=== PATIENT | female | born 1995 | race Hispanic/Latino ===

== ENCOUNTER 2019-06-16 14:39 | Emergency (ER) | payer OTHER, SELFPAY ==
[2019-06-16 14:43] VITALS: BMI 25.9
[2019-06-16 14:58] VITALS: TEMP 36.7
[2019-06-16 15:06] LABS: Bacteria Urine None Seen; RBC Urine None Seen (0-5/HPF); WBC Urine None Seen (0-5/HPF)
--- NOTE | 2019-06-16 15:11 | DI.US.S_ITS ---
PROCEDURE: US PELVIC COMPLETE INDICATIONS: BILAT PELVIC PAIN, HX OF ENDOMETRIOSIS TECHNIQUE: Real-time scanning was performed of the pelvic organs, with image documentation. Additional endovaginal scanning was necessary due to incomplete visualization of the adnexal and endometrial structures by transabdominal scanning. COMPARISON: None. FINDINGS: Transabdominal scanning: A mild amount of free pelvic fluid is seen, which is considered to be within physiologic limits. Limited scanning through the kidneys shows no hydronephrosis. Endovaginal scanning: Uterus: Uterus is normal in size at 6.3 x 2.5 x 3.7 cm. The endometrium measures 4 mm in combined thickness. Ovaries: The right ovary measures 3.7 x 1.7 x 1.8 cm. The left ovary measures 3.8 x 1.9 x 1.8 cm. The ovaries have a normal sonographic appearance, with note made of a 1.7 cm simple appearing cystic follicle within the right ovary, which is considered to be within physiologic limits. No adnexal masses are seen. The technologist notes that the patient was tender when scanning over the right ovary. Normal appearing color Doppler flow can be seen within the right ovary. However, no waveform was obtained. IMPRESSION: No significant pelvic ultrasound abnormality is seen. The technologist notes patient tenderness while scanning over the right ovary. Dictated by: Jovanni Allen M.D. on 06/16/2019 at 15:30 Approved by: Jovanni Allen M.D. on 06/16/2019 at 15:33
[2019-06-16] MEDS: ACETAMINOPHEN 325 MG TABLET 975 MG PO (15:26)
[2019-06-16 15:35] LABS: Urine Comments Microscopic Normal
[2019-06-16 15:37] LABS: Culture Indicated Urine Specimen Cultured
[2019-06-16 15:54] LABS: Add Manual Diff / Slide Review NO; Basophils Absolute Auto 100 /uL (0-100); Basophils Percent Auto 0.8 % (0-2); Eosinophils Absolute Auto 0 /uL (0-450); Eosinophils Percent Auto 0.5 % (2-4); Hematocrit 39.8 % (36-46); Hemoglobin 13.4 g/dL (12.0-16.0); Lymphocytes Absolute Auto 2500 /uL (1100-4500); Lymphocytes Percent Auto 29.7 % (25-40); Mean Corpuscular HGB Conc 33.8 % (30-36); Mean Corpuscular Hemoglobin 32.5 PG (26-34); Mean Corpuscular Volume 96.2 fL (80-100); Monocytes Absolute Auto 600 /uL (0-900); Monocytes Percent Auto 7.1 % (3-14); Neutrophils Absolute Auto 5100 /uL (1500-7000); Neutrophils Percent Auto 61.9 % (50-75); Platelet Count 241 X10^3/uL (150-400); Red Blood Cell Count 4.13 X10^6/uL (4.0-5.2); Red Cell Distribution Width 12.9 % (11.6-14.8); White Blood Cell Count 8.3 X10^3/uL (4.5-11.0)
[2019-06-16 16:04] LABS: Blood Urea Nitrogen 11 mg/dL (7-17); Calcium 9.4 mg/dL (8.4-10.2); Carbon Dioxide 26 mmol/L (22-32); Chloride 103 mmol/L (98-107); Estimated Glomerular Filt Rate > 60.0 mL/min (>60); Glucose 87 mg/dL (70-100); HEMOLYSIS < 15 (0-50); Potassium 3.9 mmol/L (3.4-5.1); Sodium 140 mmol/L (137-145)
--- NOTE | 2019-06-16 16:54 | ED_ITS ---
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 She reports has a history of endometriosis and she is current taking oral find contraception for this. She reports was diagnosed with endometriosis 4 months ago and has been having daily pain at about 5/10. She reports she had similar endometriosis but was unable to be seen by her filter plant operator provider at [facility]. She somehow felt some tingling and numbness to her arms and request an ambulance. Her last LMP was 06/09/19 for 3 days which is shorter than her normal duration of menses. She denies history of STIs and she is sexually active. She denies fever chills/vomiting, urinary symptoms. She was prescribed with Mobic but the medication is not helping with the pain. She is open to see by filter plant operator specialist for her endometriosis treatment. She reports had ultrasound done in 05/05/2019 in [facility] but the record is not available at this time. Related Data Home Medications Medication Instructions Recorded Confirmed levonorgestrel-ethinyl estrad 1 tab PO DAILY 06/16/19 06/16/19 [Orsythia] meloxicam 15 mg PO DAILY 06/16/19 06/16/19 Allergies Allergy/AdvReac Type Severity Reaction Status Date / Time No Known Drug Allergies Allergy Verified 06/16/19 14:59 Review of Systems <MARIA ALEJANDRA Pro - Last Filed: 06/17/19 03:16> Review of Systems General: See HPI HEENT: Denies sinus pain, ear pain, sore throat, difficulty swallowing, dizziness. Respiratory: Denies dyspnea, cough, wheezing, hemoptysis, sputum. Cardiovascular: Denies chest pain, palpitations, orthopnea, edema. Gastrointestinal: See HPI : Denies dysuria, frequency, incontinence, hematuria, urinary retention. Musculoskeletal: Denies weakness, joint pain or bony pain. Skin: Denies rash, skin lesions, or other. Neurologic: Denies weakness, headache, numbness, change in speech, confusion, seizures, incoordination. Psychiatric: No concerning psychosocial issues. 12-point review of systems is negative except for those stated above. PFSH <MARIA ALEJANDRA Pro - Last Filed: 06/17/19 03:16> Medical History Endometriosis (Acute) Shoulder pain (Acute) Surgical History (Updated 06/17/19 @ 03:00 by MARIA ALEJANDRA Pro) No pertinent past surgical history (Acute) Social History Smoking Status: Never smoker Social History Smoking Status: Never smoker Exam <MARIA ALEJANDRA Pro - Last Filed: 06/17/19 03:16> Narrative Exam Narrative: GEN: Alert, oriented x 3, well appearing and nourished, and in no acute distress. Head: Normal cephalic, atraumatic. No scalp or temporal tenderness, palpable mass or rash. EYES: Pupils are equal, round, and reactive to light and accommodation. Extraocular muscles are intact bilaterally. There is no subconjunctival hemorrhage, exudate and sclera non-icteric. ENT: Bilateral auditory canals and tympanic membranes. Hearing grossly intact. Mucous membrane moist, no mucosal lesion. Throat without erythema, tonsillar hypertrophy or exudate. Uvula in midline, airway patent. Neck: Trachea in midline. No JVD, non-tender without lymphadenopathy. No masses or thyroid megaly. Supple, non-tender and no meningeal signs. CARDIAC: Normal regular rate and rhythm without murmurs, gallops, or rubs. No chest wall tenderness. No peripheral edema, cyanosis or pallor. Capillary refill is less than 2 seconds. RESPIRATORY: Lungs are cleat to auscultate bilaterally. No cough, wheezes, rales, or rhonchi. No stridor, respiratory distress, increase work of breathing, or accessary muscle used. ABD: Tender to palpate in bilateral low abdomen. Abdomen soft and non- distended. No guarding or rebound tenderness to palpate. Bowel sounds are normal in all 4 quadrants. There is no palpable masses or organomegaly. PELVIC: Normally developed external female genitalia with no external lesions or eruptions. Vagina and cervix have no lesions, inflammation, discharge or tenderness. Cervix is nontender. Uterus is within normal limits with no adnexal fullness. EXT: Full painless ROM of all extremities with no loss of sensation, strength, effusion or edema. SKIN: Warm, dry, normal color for patient. No erythema, lesions or rash. BACK: Nontender without deformity or crepitance. No flank tenderness. NEUROLOGICAL: Alert and oriented to place, time and person. Sensation and motor function intact bilaterally. No facial droops, dysphasia. PSYCHIATRIC: Good judgement and reason, without hallucinations, abnormal affect or abnormal behaviors during the examination. Patient is not suicidal. Initial Vital Signs Initial Vital Signs: Vital Signs Temperature 98.0 F 06/16/19 14:58 <Ricky Manzo DO - Last Filed: 06/18/19 06:39> Initial Vital Signs Initial Vital Signs: Vital Signs Temperature 98.0 F 06/16/19 14:58 Course <MARIA ALEJANDRA Pro - Last Filed: 06/17/19 03:16> Orders Ordered: Discontinued Medications Acetaminophen (Tylenol) 975 mg PO NOW ONE Stop: 06/16/19 15:14 Last Admin: 06/16/19 15:26 Dose: 975 mg Ketorolac Tromethamine (Toradol) 30 mg IV NOW ONE Stop: 06/16/19 15:15 Last Admin: 06/16/19 16:04 Dose: Not Given Ketorolac Tromethamine (Toradol) 60 mg IM NOW ONE Stop: 06/16/19 17:38 Last Admin: 06/16/19 17:42 Dose: 60 mg Vital Signs - 8 hr 06/16/19 14:58 Temperature 98.0 F <DO Ara Obrien Last Filed: 06/18/19 06:39> Orders Ordered: Discontinued Medications Acetaminophen (Tylenol) 975 mg PO NOW ONE Stop: 06/16/19 15:14 Last Admin: 06/16/19 15:26 Dose: 975 mg Ketorolac Tromethamine (Toradol) 30 mg IV NOW ONE Stop: 06/16/19 15:15 Last Admin: 06/16/19 16:04 Dose: Not Given Ketorolac Tromethamine (Toradol) 60 mg IM NOW ONE Stop: 06/16/19 17:38 Last Admin: 06/16/19 17:42 Dose: 60 mg Vital Signs - 8 hr 06/16/19 14:58 Temperature 98.0 F MDM - Female Genitourinary <Darvin MARIA ALEJANDRA Singh - Last Filed: 06/17/19 03:16> Differential Diagnosis Likely urinary tract infection, cervicitis, vaginitis and other (exacerbation of endometriosis, ovarian torsion) Medical Records Attestation: I reviewed the patient's medical records. Lab Data Attestation: I reviewed the patient's lab results. Result diagrams: 06/16/19 15:45 06/16/19 15:45 Lab Results 06/16/19 06/16/19 06/16/19 Range/Units 14:45 15:45 15:45 WBC 8.3 (4.5-11.0) X10^3/uL RBC 4.13 (4.0-5.2) X10^6/uL Hgb 13.4 (12.0-16.0) g/dL Hct 39.8 (36-46) % MCV 96.2 (80-100) fL MCH 32.5 (26-34) PG MCHC 33.8 (30-36) % RDW 12.9 (11.6-14.8) % Plt Count 241 (150-400) X10^3/uL Neut % (Auto) 61.9 (50-75) % Lymph % (Auto) 29.7 (25-40) % [place] % (Auto) 7.1 (3-14) % Eos % (Auto) 0.5 L (2-4) % Baso % (Auto) 0.8 (0-2) % Neut # (Auto) 5100 (3739-1007) /uL Lymph # (Auto) 2500 (0615-5715) /uL [place] # (Auto) 600 (0-900) /uL Eos # (Auto) 0 (0-450) /uL Baso # (Auto) 100 (0-100) /uL Sodium 140 (137-145) mmol/L Potassium 3.9 (3.4-5.1) mmol/L Chloride 103 (98-107) mmol/L Carbon Dioxide 26 (22-32) mmol/L BUN 11 (7-17) mg/dL Creatinine 0.50 L (0.52-1.04) mg/dL Estimated GFR > 60.0 (>60) mL/min BUN/Creatinine Ratio 22.0 (6-22) Glucose 87 (70-100) mg/dL Calcium 9.4 (8.4-10.2) mg/dL Urine RBC None seen (0-5/HPF) Urine WBC None seen (0-5/HPF) Urine Bacteria None seen (None) Ur Culture Indicated? Specimen cultured Micro UA Comment Microscopic normal Point of Care Testing Test Results Negative Urine Dip Bedside Urine Glucose Negative Bedside Urine Bilirubin - Negative Bedside Urine Ketone - Negative Urine Specific [place] 1.010 Bedside Urine Occult Blood - Negative Bedside Urine pH 7 Bedside Urine Protein - Negative Bedside Urine Urobilinogen - Negative Bedside Urine Nitrite - Negative Bedside Urine Leukocytes +/- 15 Esterase Imaging Data US-Pelvic: Radiologist's impression: Ofe Carreno 23 [address] 1995 [place] [address] Ultrasound Report Signed Patient: Ofe CarrenoMR#: [id number] : 1995Acct:[id number] Age/Sex: 23 FDate of Service: 06/16/19 Loc: ED Accession Number: [id number] Procedure: US pelvic complete Ordering Provider: Darvin Singh PROCEDURE: US PELVIC COMPLETE INDICATIONS: BILAT PELVIC PAIN, HX OF ENDOMETRIOSIS TECHNIQUE: Real-time scanning was performed of the pelvic organs, with image documentation. Additional endovaginal scanning was necessary due to incomplete visualization of the adnexal and endometrial structures by transabdominal scanning. COMPARISON: None. FINDINGS: Transabdominal scanning: A mild amount of free pelvic fluid is seen, which is considered to be within physiologic limits. Limited scanning through the kidneys shows no hydronephrosis. Endovaginal scanning: Uterus: Uterus is normal in size at 6.3 x 2.5 x 3.7 cm. The endometrium measures 4 mm in combined thickness. Ovaries: The right ovary measures 3.7 x 1.7 x 1.8 cm. The left ovary measures 3.8 x 1.9 x 1.8 cm. The ovaries have a normal sonographic appearance, with note made of a 1.7 cm simple appearing cystic follicle within the right ovary, which is considered to be within physiologic limits. No adnexal masses are seen. The technologist notes that the patient was tender when scanning over the right ovary. Normal appearing color Doppler flow can be seen within the right ovary. However, no waveform was obtained. IMPRESSION: No significant pelvic ultrasound abnormality is seen. The technologist notes patient tenderness while scanning over the right ovary. Dictated by: Jovanni Allen M.D. on 06/16/2019 at 15:30 Approved by: Jovanni Allen M.D. on 06/16/2019 at 15:33 MDM Narrative Medical decision making narrative: This is a 23-year-old female presents to ED with bilateral lower abdominal pain with intermittent mild nausea. She reports was diagnosed with endometriosis 4 months ago his current he taking oral contraceptive. She reports lives with daily pain about 5/10. Today she had similar pain but more severe as 7/10 and sharp with pressure and requested an ambulance service. Her lab tests today looks unremarkable. The urine appears to be clean without signs of infection. The urine was negative. GC- chlamydia culture were obtained during pelvic exam which is pending. There was no cervical motion tenderness, no unusual vaginal discharge noted. Patient reports discomfort with deep palpation on bilateral lower abdomen. Pelvic ultrasound shows no significant abnormal to was seen. Patient was medicated with p.o. Tylenol 975 mg and Toradol 60 mg IM injection prior living ER. We discussed in length the patient is to be follow up with her primary care physic lawrence and to get a referral to filter plant operator provider. The tests that were done today did not indicate any acute findings or surgical evaluations at this. Patient verbalized understanding and discussed return precautions. Patient agrees with the treatment plan and all questions were answered. <Ricky Manzo, DO - Last Filed: 06/18/19 06:39> Lab Data Lab Results 06/16/19 06/16/19 06/16/19 Range/Units 14:45 15:45 15:45 WBC 8.3 (4.5-11.0) X10^3/uL RBC 4.13 (4.0-5.2) X10^6/uL Hgb 13.4 (12.0-16.0) g/dL Hct 39.8 (36-46) % MCV 96.2 (80-100) fL MCH 32.5 (26-34) PG MCHC 33.8 (30-36) % RDW 12.9 (11.6-14.8) % Plt Count 241 (150-400) X10^3/uL Neut % (Auto) 61.9 (50-75) % Lymph % (Auto) 29.7 (25-40) % [place] % (Auto) 7.1 (3-14) % Eos % (Auto) 0.5 L (2-4) % Baso % (Auto) 0.8 (0-2) % Neut # (Auto) 5100 (3539-9498) /uL Lymph # (Auto) 2500 (5718-6940) /uL [place] # (Auto) 600 (0-900) /uL Eos # (Auto) 0 (0-450) /uL Baso # (Auto) 100 (0-100) /uL Sodium 140 (137-145) mmol/L Potassium 3.9 (3.4-5.1) mmol/L Chloride 103 (98-107) mmol/L Carbon Dioxide 26 (22-32) mmol/L BUN 11 (7-17) mg/dL Creatinine 0.50 L (0.52-1.04) mg/dL Estimated GFR > 60.0 (>60) mL/min BUN/Creatinine Ratio 22.0 (6-22) Glucose 87 (70-100) mg/dL Calcium 9.4 (8.4-10.2) mg/dL Urine RBC None seen (0-5/HPF) Urine WBC None seen (0-5/HPF) Urine Bacteria None seen (None) Ur Culture Indicated? Specimen cultured Micro UA Comment Microscopic normal Point of Care Testing Test Results Negative Urine Dip Bedside Urine Glucose Negative Bedside Urine Bilirubin - Negative Bedside Urine Ketone - Negative Urine Specific [place] 1.010 Bedside Urine Occult Blood - Negative Bedside Urine pH 7 Bedside Urine Protein - Negative Bedside Urine Urobilinogen - Negative Bedside Urine Nitrite - Negative Bedside Urine Leukocytes +/- 15 Esterase Discharge Plan Departure Patient Disposition: Home Clinical Impression: Bilateral lower abdominal pain, History of endometriosis Discharge Date/Time: 06/16/19 18:09 Interventions: ED Discharge Assessment Last Done: 06/16/19 18:08 Instructions: DI for Endometriosis, DI for Abdominal Pain-Adult Activity Restrictions/Additional Instructions: You have been diagnosed with [bilateral low abdominal pain, history of endometriosis. Your ultrasound test result shows no ovarian rupture, mass, torsion. You're a urine test shows no obvious infection but it is being cultured at this time and you will receive a phone call if you need to be treated with antibiotic medication. Also CG-GC culture was obtained and the result is pending. He probably need a referral to filter plant operator specialist for the endometriosis. Your blood test results are unremarkable. You were treated with p.o. Tylenol and Im Toradol]. What to do: *Take your medications as directed. He can add Tylenol to you're meloxicam medications for pain. Do not take additional ibuprofen, Aleve or and states severe taking meloxicam. *Follow up with your primary care provider in 2-3 days, call for an appointment. Let them know you were seen in the ED and that we asked you to be seen in follow up. *Return to ED if you have any new, worsening, or concerning symptoms, such as [increasing abdominal pain, fever, nausea vomiting, unusual vaginal bleeding/discharge, flank pain, chest pain, breathing difficulty, any acute concerns]. Prescriptions: No Action levonorgestrel-ethinyl estrad [Orsythia] 0.1-20 mg-mcg tablet 1 tab PO DAILY RF: 0 meloxicam 15 mg tablet 15 mg PO DAILY RF: 0 Referrals: [facility] [Outside] <Ricky Manzo DO - Last Filed: 06/18/19 06:39> Cosign ED Attending Luz Attestation: I was immediately available in the department for consultation. Documentation has been reviewed. I agree with assessment and plan.
[2019-06-16] MEDS: KETOROLAC 60 MG/2 ML VIAL IM (17:42)
[2019-06-16 17:59] VITALS: BP 117/77; PULSE 79; RESP 16; O2SAT 100
== END 2019-06-16 18:09 | disposition home or self-care (01) ==
PROVIDERS: Emergency Provider Nurse Practitioner Family
DX: R10.30 Lower abdominal pain, unspecified (principal); Z87.42 Personal history of other diseases of the female genital tract
CPT/HCPCS: 36415; 76830; 76856; 80048; 81003; 81015; 81025; 85025; 87077; 87086; 87491; 87591; 96372; 99283; 99284; J1885

== ENCOUNTER → 2019-07-23 17:28 | Outpatient (CLI) | payer OTHER, SELFPAY ==
[2019-07-23 19:46] LABS: Urine Chlamydia NOT DETECTED
[2019-07-24 09:54] LABS: Urine N gonorrhoeae DETECTED
== END ==
PROVIDERS: Visit Provider Physician Assistant
DX: R30.0 Dysuria (principal)
CPT/HCPCS: 87077; 87086; 87186; 87491; 87591

== ENCOUNTER 2019-09-08 17:46 | Emergency (ER) | payer OTHER, SELFPAY ==
[2019-09-08 18:06] VITALS: BP 129/74; PULSE 99; RESP 20; TEMP 36.5; O2SAT 100
--- NOTE | 2019-09-08 20:33 | PC.NURSE ---
Pt returned to registraion desk. Mikala at registration inofrmed me. I went to reg desk to speak to pt. Pt states that she went upstairs because she had been waiting for a while. I informed her that we came looking for her and she was no where to be found.
--- NOTE | 2019-09-08 20:55 | ED.SKABFB ---
HPI - Skin/Abscess/Foreign Bdy General Chief complaint: Skin/Abscess/Foreign Body Stated complaint: POSSIBLE INFECTED TATOO Time Seen by Provider: 09/08/19 20:05 Source: patient Mode of arrival: Ambulatory Limitations: no limitations History of Present Illness HPI narrative: 24-year-old female who less than 1 week ago had a tattoo on her right forearm or the red ink. She comes the emergency department today thinking there is an infection. There is no redness around the area. There is some crusting of the area. No pain. Related Data Previous Rx's Medication Instructions Recorded hydrocortisone 1 % topical cream 1 applictn TOP BID PRN #30 gram 07/23/19 azithromycin 250 mg tablet 1,000 mg PO ONCE #4 tab 07/24/19 Allergies Allergy/AdvReac Type Severity Reaction Status Date / Time No Known Drug Allergies Allergy Verified 07/23/19 17:27 Review of Systems Constitutional Constitutional: Denies fever(s) Musculoskeletal Musculoskeletal: Denies myalgias and Denies arthralgias Integumentary/Breasts Comments: Crusting around the area of her tattoo in the right forearm Neurologic Neurologic: Denies behavioral changes Psychiatric Psychiatric: Denies behavioral changes Patient History Medical History Endometriosis (Acute) Shoulder pain (Acute) Surgical History (Updated 06/17/19 @ 03:00 by MARIA ALEJANDRA Pro) No pertinent past surgical history (Acute) Social History Smoking Status: Never smoker alcohol intake frequency: other Substance Use Type: does not use Exam Initial Vital Signs Initial Vital Signs: Vital Signs Temperature 97.7 F 09/08/19 18:06 Pulse Rate 99 H 09/08/19 18:06 Respiratory Rate 20 09/08/19 18:06 Blood Pressure 129/74 09/08/19 18:06 Pulse Oximetry 100 09/08/19 18:06 Const General: cooperative and comfortable Orientation: alert and awake Resp Effort & Inspection: normal respiratory effort Cardio Rate: regular rate Pulses: radial pulses present on the right Skin Other: Patient with a small tattoo right forearm volar aspect with [place]. There is no surrounding erythema. There is some areas where there is scab. Extrem General: capillary refill normal Course Vital Signs Vital signs: Vital Signs - 8 hr 09/08/19 18:06 Temperature 97.7 F Pulse Rate 99 H Respiratory Rate 20 Blood Pressure 129/74 Pulse Oximetry 100 MDM - Skin/Abscess/Foreign Bdy MDM Narrative Medical decision making narrative: I do not think that her tattoo was infected. I think this is most likely just healing from the tattoo being less than 1-week-old. There is also some concern that she may be having a reaction to the red ink however it is too early to determine between healing versus reaction. I do not feel the need to do antibiotics. Informed her she needed talk with her medical department [place] [employer]. She was given return precautions. She expressed understanding and agreement plan. Discharge Plan Departure Patient Disposition: Home Clinical Impression: Tattoo reaction Discharge Date/Time: 09/08/19 21:04 Activity Restrictions/Additional Instructions: The tattoo does not look infected today. It is somewhat difficult to determine whether not it is healing or you are having a reaction to the red ink. I do recommend you talk with your medical department [place] [facility] [employer] for follow-up. Return to the emergency department for any new or worsening symptoms Prescriptions: No Action hydrocortisone [Anti-Itch (HC)] 1 % cream 1 applictn TOP BID PRN (Reason: skin irritation) Qty: 30 RF: 0 azithromycin 250 mg tablet 1,000 mg PO ONCE Qty: 4 RF: 0
--- NOTE | 2019-09-08 21:03 | PC.NURSE ---
Pt got a tattoo on her right FA 3 days ago. Pt concerned that it is infected. There are 2 areas on tattoo that have a scab. No drainage or redness extending from the borders of the tattoo.
== END 2019-09-08 21:04 | disposition home or self-care (01) ==
PROVIDERS: Emergency Provider Emergency Medicine
DX: L92.3 Foreign body granuloma of the skin and subcutaneous tissue (principal)
CPT/HCPCS: 99282; 99283

== ENCOUNTER 2019-10-09 16:56 | Emergency (ER) | payer OTHER, SELFPAY | END 2019-10-09 18:15 | disposition left against medical advice (07) | CPT/HCPCS: 99281 ==

== ENCOUNTER 2019-10-24 21:26 | Emergency (ER) | payer OTHER, SELFPAY ==
[2019-10-24 21:26] VITALS: BP 130/82; PULSE 78; RESP 16; TEMP 37.2; O2SAT 100; BMI 24.0
--- NOTE | 2019-10-24 21:55 | PC.NURSE ---
mian at bedside per patient request.
--- NOTE | 2019-10-24 22:09 | ED_ITS ---
HPI - Abdominal Pain General Chief Complaint: Abdominal Pain Stated Complaint: tabulating supervisor problem Time Seen by Provider: 10/24/19 21:52 Source: patient Mode of arrival: Ambulatory Limitations: no limitations History of Present Illness HPI narrative: Patient is a 24-year-old female presents with abdominal discomfort. She is being worked up for endometriosis. She started having some abdominal discomfort yesterday she started her period today. She says that she had some heavy bleeding today she has only changed about 6 pads in total today and there the regular pads. She he is on happy with her tabulating supervisor is a will not pres cribe her anything stronger for her abdominal pain. She says Tylenol and ibuprofen do not work. Someone from the [employer] called earlier a looking for this particular patient. She apparently is supposed to have inpatient psychiatric treatment for schizophrenia and to get on a medevac plane tomorrow. She was discharged from [facility] 5 days ago, and needs in patient treatment. At this time patient denies any and all psychiatric complaints and is only complaining of abdominal discomfort. Upon direct questioning she denies any suicidal homicidal ideation she also denies any hallucinations or voices. MD complaint: abdominal pain Related Data Previous Rx's Medication Instructions Recorded hydrocortisone 1 % topical cream 1 applictn TOP BID PRN #30 gram 07/23/19 Allergies Allergy/AdvReac Type Severity Reaction Status Date / Time No Known Drug Allergies Allergy Verified 07/23/19 17:27 Review of Systems Review of Systems ROS Unobtainable: All systems reviewed & are unremarkable except as noted in HPI and below Constitutional Constitutional: Denies chills, Denies fever(s), Denies lethargy and Denies weakness Eyes Eyes: Denies change in vision, Denies eye discharge, Denies irritation and Denies loss of vision ENT Ears, Nose, Mouth, and Throat: Denies change in voice, Denies neck pain and Denies sore throat Cardiovascular Cardiovascular: Denies chest pain, Denies irregular heart rhythm, Denies lightheadedness, Denies palpitations, Denies dyspnea, Denies dyspnea on exertion and Denies orthopnea Respiratory Respiratory: Denies cough, Denies dyspnea, Denies dyspnea on exertion and Denies wheezing Genitourinary Genitourinary: Reports as per HPI Musculoskeletal Musculoskeletal: Denies neck pain Integumentary/Breasts Skin/Breast: Denies pruritus, Denies erythema, Denies rash and Denies wounds Neurologic Neurologic: Denies loss of vision and Denies weakness Endocrine Endocrine: Denies palpitations Allergic/Immunologic Allergic/Immunologic: Denies wheezing Patient History Medical History Endometriosis (Acute) Shoulder pain (Acute) Surgical History No pertinent past surgical history (Acute) Social History Smoking Status: Current some day smoker Smoking Status: Current some day smoker tobacco type: cigarettes alcohol intake frequency: other Substance Use Type: does not use Exam Initial Vital Signs Initial Vital Signs: Vital Signs Temperature 98.9 F 10/24/19 21:26 Pulse Rate 78 10/24/19 21:26 Respiratory Rate 16 10/24/19 21:26 Blood Pressure 130/82 10/24/19 21:26 Pulse Oximetry 100 10/24/19 21:26 GENERAL: Well-appearing, well-nourished and in no acute distress. HEENT: Head atraumatic,EOMI, pupils reactive, face symmetric, moist mucous membranes CARDIOVASCULAR: Regular rate and rhythm without murmurs, rubs or gallops. RESPIRATORY: Breath sounds equal bilaterally, no wheezes rales or rhonchi. ABDOMEN: Soft, nontender. Normoactive bowel sounds all 4 quadrants. No guarding or rebound. : No CVA tenderness EXTREMITIES: Normal range of motion, no clubbing or edema. Neurovascularly intact NEUROLOGICAL: Alert and oriented x4.Normal gait and speech. SKIN: Warm, dry, no laceration, no petechiae, no rashes or lesions. Course Orders Ordered: Discontinued Medications Acetaminophen (Tylenol) 975 mg PO NOW ONE Stop: 10/24/19 22:33 Last Admin: 10/24/19 22:37 Dose: 975 mg Documented by: VIDAL Vital Signs Vital signs: Vital Signs - 8 hr 10/24/19 21:26 Temperature 98.9 F Pulse Rate 78 Respiratory Rate 16 Blood Pressure 130/82 Pulse Oximetry 100 MDM - Abdominal Pain Lab Data Attestation: I reviewed the patient's lab results. Point of care testing: Point of Care Testing Test Results Negative Urine Dip Bedside Urine Glucose Negative Bedside Urine Bilirubin - Negative Bedside Urine Ketone - Negative Urine Specific [place] 1.010 Bedside Urine Occult Blood ++ Bedside Urine pH 7.0 Bedside Urine Protein - Negative Bedside Urine Urobilinogen - Negative Bedside Urine Nitrite - Negative Bedside Urine Leukocytes - Negative Esterase MDM Narrative Medical decision making narrative: Patient is offered blood work and a shot of Toradol but nothing stronger for her pain. She will take some Tylenol. She refused to have her blood drawn she wants no pelvic ultrasound or any imaging. Her urinalysis is negative. She appears well alert and oriented x4. Abdomen is minimally tender she is eating and drinking while in the emergency department. The patient is clinically sober, free from distracting injury, appears to have intact insight, judgment and reason. Does not meet criteria for involuntary hospitalization. Patient has the capacity to make decisions. At this time she does not have any signs or symptoms of psychosis and does not meet involuntary criteria. Discharge Plan Departure Patient Disposition: Home Clinical Impression: Endometriosis Discharge Date/Time: 10/24/19 22:44 Instructions: DI for Endometriosis Activity Restrictions/Additional Instructions: *You have been diagnosed with endometriosis *What to do: At this time if you are requiring stronger pain medication you need to talk with her strategic sourcing manager or PCP *Continue to take medications as directed Ibuprofen 800 mg every 8 hours if needed for [id number] pain Tylenol 650 mg every 4-6 hours if needed for [id number] pain *Follow up with your primary care provider in 2-3 days *Return to ER if you should have more than 3 super pads or tampons an hour, lightheadedness dizziness passing out or any new, worsening or concerning symptoms Prescriptions: No Action hydrocortisone [Anti-Itch (HC)] 1 % cream 1 applictn TOP BID PRN (Reason: skin irritation) Qty: 30 RF: 0 Referrals: [facility] [Provider Group] [facility] [employer] [facility] [Provider Group] Stand Alone Forms: Work Release Note
[2019-10-24 22:36] VITALS: BP 137/91; PULSE 84; RESP 17; O2SAT 100
[2019-10-24] MEDS: ACETAMINOPHEN 325 MG TABLET 975 MG PO (22:37)
== END 2019-10-24 22:44 | disposition home or self-care (01) ==
PROVIDERS: Emergency Provider Emergency Medicine
DX: N80.9 Endometriosis, unspecified (principal)
CPT/HCPCS: 81003; 81025; 99281; 99283

== ENCOUNTER 2019-11-01 17:12 | Emergency (ER) | payer OTHER, SELFPAY ==
[2019-11-01 17:14] VITALS: BP 120/81; PULSE 104; RESP 20; O2SAT 97
--- NOTE | 2019-11-01 17:52 | ED.PSYCH ---
HPI - Psych <Ynes Almeida DO - Last Filed: 11/02/19 07:31> General Chief Complaint: Psychiatric Symptoms Stated Complaint: psyche issues Time Seen by Provider: 11/01/19 17:19 Source: patient and police Mode of arrival: Ambulatory History of Present Illness HPI Narrative: Patient is a 24-year-old female escorted in by police for psychosis. Over the past few months she has been having psychotic episodes. She has been hallucinating. She previously managed to get on the flight line which apparently is somewhere she is not supposed to be and help bleed guarded she thought she saw flares an activated Coast line putting lives at risk. She also was diagnosed with gonorrhea she did not believe the diagnosis she went to 4 different providers to all diagnosed her with gonorrhea she was ultimately forced to get treatment. She was placed on medical leave for pelvic pain she has had an extensive workup and no diagnosis of her pain has been made however she continues to have the pain and has thought that she has endometriosis. [facility] is she had a medevac flight arranged to go to inpatient psych in [place] however she never showed up for the flight on the flight was canceled. Over last 2 days she has called 911 multiple times convinced that there a bodies in the storage unit. She has a sewer separation designer to undo lock, no bodies were found. Concern is that she is off frequently in directly putting others at risk and she is having severe hallucinations delusions. She states that she is going to work for the [employer] and that her command doesn't want her reporting suspicious activity. She feels like it is her responsibility to report and investigate any suspicious activity. She is here with with her director of parks and recreation and commanding officers. [facility] apparently has a bed and has accepted her however they need medical clearance 1st. Related Data Allergies Allergy/AdvReac Type Severity Reaction Status Date / Time No Known Drug Allergies Allergy Verified 07/23/19 17:27 Review of Systems <DO Ara Weinberg Last Filed: 11/02/19 07:31> Review of Systems ROS Unobtainable: All systems reviewed & are unremarkable except as noted in HPI and below Constitutional Constitutional: Denies chills and Denies fever(s) Cardiovascular Cardiovascular: Denies chest pain, Denies dyspnea and Denies dyspnea on exertion Respiratory Respiratory: Denies cough, Denies dyspnea, Denies dyspnea on exertion and Denies wheezing Gastrointestinal Gastrointestinal: Reports as per HPI, Denies diarrhea and Denies nausea Genitourinary Genitourinary: Reports as per HPI Musculoskeletal Musculoskeletal: Denies back pain, Denies muscle weakness, Denies numbness and Denies tingling Integumentary/Breasts Skin/Breast: Denies pruritus, Denies erythema, Denies rash and Denies wounds Neurologic Neurologic: Denies numbness and Denies tingling Allergic/Immunologic Allergic/Immunologic: Denies wheezing Patient History <Ynes Almeida DO - Last Filed: 11/02/19 07:31> Medical History Endometriosis (Acute) Shoulder pain (Acute) Surgical History No pertinent past surgical history (Acute) Social History Smoking Status: Current some day smoker Smoking Status: Current some day smoker tobacco type: cigarettes alcohol intake frequency: other Substance Use Type: does not use Exam <Ynes Almeida DO - Last Filed: 11/02/19 07:31> Initial Vital Signs Initial Vital Signs: Vital Signs Pulse Rate 104 H 11/01/19 17:14 Respiratory Rate 20 11/01/19 17:14 Blood Pressure 120/81 11/01/19 17:14 Pulse Oximetry 97 11/01/19 17:14 GENERAL: Well-appearing, well-nourished and in no acute distress. CARDIOVASCULAR: peripheral pulses in tact, cap refill <2 sec RESPIRATORY: No respiratory distress, speaks in full sentences without difficulty EXTREMITIES: Normal range of motion, no clubbing or edema. Neurovascularly intact NEUROLOGICAL: Cranial nerves II through XII grossly intact. Normal gait and speech. SKIN: Warm, dry, no petechiae, no rashes or lesions. <Ricky Manzo DO - Last Filed: 11/02/19 00:37> Initial Vital Signs Initial Vital Signs: Vital Signs Pulse Rate 104 H 11/01/19 17:14 Respiratory Rate 20 11/01/19 17:14 Blood Pressure 120/81 11/01/19 17:14 Pulse Oximetry 97 11/01/19 17:14 Course <Ynes Almeida DO - Last Filed: 11/02/19 07:31> Orders Ordered: Discontinued Medications Lorazepam (Ativan) 2 mg PO NOW ONE Stop: 11/01/19 18:04 Last Admin: 11/01/19 18:19 Dose: 2 mg Documented by: HELENA Lorazepam (Ativan) 0.5 mg PO NOW ONE Stop: 11/01/19 18:14 Last Admin: 11/01/19 18:16 Dose: Not Given Documented by: BERT Vital Signs Vital signs: Vital Signs - 8 hr 11/01/19 17:14 11/01/19 20:30 Temperature 98.6 F Pulse Rate 104 H 91 H Respiratory Rate 20 16 Blood Pressure 120/81 Blood Pressure [Right Arm] 127/80 Pulse Oximetry 97 100 <Ricky Manzo DO - Last Filed: 11/02/19 00:37> Course Course Narrative: Patient received in sign-out from Dr. Almeida. I have performed an independent history and physical and agree with the above-stated documentation. The patient denies any suicidal or homicidal ideations, she doesn't know why she is here and does not think she needs to be here. She has been medically cleared as of 1947 and will be transported to [facility] by EMS, a naval police reserves commander will travel with the patient. Orders Ordered: Discontinued Medications Lorazepam (Ativan) 2 mg PO NOW ONE Stop: 11/01/19 18:04 Last Admin: 11/01/19 18:19 Dose: 2 mg Documented by: HELENA Lorazepam (Ativan) 0.5 mg PO NOW ONE Stop: 11/01/19 18:14 Last Admin: 11/01/19 18:16 Dose: Not Given Documented by: BERT Vital Signs Vital signs: Vital Signs - 8 hr 11/01/19 17:14 11/01/19 20:30 Temperature 98.6 F Pulse Rate 104 H 91 H Respiratory Rate 20 16 Blood Pressure 120/81 Blood Pressure [Right Arm] 127/80 Pulse Oximetry 97 100 MDM - Psych <Ynes Almeida DO - Last Filed: 11/02/19 07:31> Lab Data Result diagrams: 11/01/19 18:35 11/01/19 18:35 Labs: Lab Results 12/11/01/19 11/01/19 Range/Units 18:28 18:35 18:35 WBC 9.1 (4.5-11.0) X10^3/uL RBC 4.47 (4.0-5.2) X10^6/uL Hgb 14.6 (12.0-16.0) g/dL Hct 43.0 (36-46) % MCV 96.2 (80-100) fL MCH 32.7 (26-34) PG MCHC 33.9 (30-36) % RDW 13.0 (11.6-14.8) % Plt Count 306 (150-400) X10^3/uL Neut % (Auto) 67.9 (50-75) % Lymph % (Auto) 25.0 (25-40) % [place] % (Auto) 6.1 (3-14) % Eos % (Auto) 0.2 L (2-4) % Baso % (Auto) 0.8 (0-2) % Neut # (Auto) 6100 (7711-7891) /uL Lymph # (Auto) 2300 (1813-7900) /uL [place] # (Auto) 500 (0-900) /uL Eos # (Auto) 0 (0-450) /uL Baso # (Auto) 100 (0-100) /uL Sodium 139 (137-145) mmol/L Potassium 3.6 (3.4-5.1) mmol/L Chloride 101 (98-107) mmol/L Carbon Dioxide 28 (22-32) mmol/L BUN 6 L (7-17) mg/dL Creatinine 0.60 (0.52-1.04) mg/dL Estimated GFR > 60.0 (>60) mL/min BUN/Creatinine Ratio 10.0 (6-22) Glucose 110 H (70-100) mg/dL Calcium 9.6 (8.4-10.2) mg/dL Total Bilirubin 0.4 (0.2-1.3) mg/dL AST 23 (14-36) IU/L ALT 16 (<35) IU/L Alkaline Phosphatase 108 (38-126) U/L Total Protein 8.5 H (6.3-8.2) g/dL Albumin 4.9 (3.5-5.0) g/dL Globulin 3.6 (1.7-4.1) g/dL Albumin/Globulin Ratio 1.4 (1.0-2.8) TSH (0.47-4.68) uIU/mL HCG, Quant < 2.39 mIU/mL Salicylates < 1.0 (<20) mg/dL U Morph 300 ng/mL cutoff Negative (Negative) Ur Oxycodone Screen Negative (Negative) Urine Methadone Screen Negative (Negative) Acetaminophen < 10 L (10-30) ug/mL Ur Barbiturates Screen Negative (Negative) U Tricyclic Antidepress Negative (Negative) Ur Phencyclidine Scrn Negative (Negative) Ur Amphetamines Screen Negative (Negative) U Methamphetamines Scrn Negative (Negative) Ur MDMA Scrn (Ecstasy) Negative (Negative) U Benzodiazepines Scrn Negative (Negative) Urine Cocaine Screen Negative (Negative) U Marijuana (THC) Screen Negative (Negative) Ethyl Alcohol < 10 ( - 10) mg/dL 12/25/19 Range/Units 18:35 WBC (4.5-11.0) X10^3/uL RBC (4.0-5.2) X10^6/uL Hgb (12.0-16.0) g/dL Hct (36-46) % MCV (80-100) fL MCH (26-34) PG MCHC (30-36) % RDW (11.6-14.8) % Plt Count (150-400) X10^3/uL Neut % (Auto) (50-75) % Lymph % (Auto) (25-40) % [place] % (Auto) (3-14) % Eos % (Auto) (2-4) % Baso % (Auto) (0-2) % Neut # (Auto) (9731-4530) /uL Lymph # (Auto) (7689-7011) /uL [place] # (Auto) (0-900) /uL Eos # (Auto) (0-450) /uL Baso # (Auto) (0-100) /uL Sodium (137-145) mmol/L Potassium (3.4-5.1) mmol/L Chloride (98-107) mmol/L Carbon Dioxide (22-32) mmol/L BUN (7-17) mg/dL Creatinine (0.52-1.04) mg/dL Estimated GFR (>60) mL/min BUN/Creatinine Ratio (6-22) Glucose (70-100) mg/dL Calcium (8.4-10.2) mg/dL Total Bilirubin (0.2-1.3) mg/dL AST (14-36) IU/L ALT (<35) IU/L Alkaline Phosphatase (38-126) U/L Total Protein (6.3-8.2) g/dL Albumin (3.5-5.0) g/dL Globulin (1.7-4.1) g/dL Albumin/Globulin Ratio (1.0-2.8) TSH 0.77 (0.47-4.68) uIU/mL HCG, Quant mIU/mL Salicylates (<20) mg/dL U Morph 300 ng/mL cutoff (Negative) Ur Oxycodone Screen (Negative) Urine Methadone Screen (Negative) Acetaminophen (10-30) ug/mL Ur Barbiturates Screen (Negative) U Tricyclic Antidepress (Negative) Ur Phencyclidine Scrn (Negative) Ur Amphetamines Screen (Negative) U Methamphetamines Scrn (Negative) Ur MDMA Scrn (Ecstasy) (Negative) U Benzodiazepines Scrn (Negative) Urine Cocaine Screen (Negative) U Marijuana (THC) Screen (Negative) Ethyl Alcohol ( - 10) mg/dL Point of Care Testing Test Results Negative Urine Dip Bedside Urine Glucose Negative Bedside Urine Bilirubin - Negative Bedside Urine Ketone - Negative Urine Specific [place] 1.010 Bedside Urine Occult Blood - Negative Bedside Urine pH 6.0 Bedside Urine Protein - Negative Bedside Urine Urobilinogen - Negative Bedside Urine Nitrite - Negative Bedside Urine Leukocytes - Negative Esterase MDM Narrative Medical decision making narrative: Patient has extremely poor insight, based on history over the past few weeks she seems gravely disabled. Even today is she does not appear to have a good judgment and cannot explain is why she is here with 2 police officers social Work commanding officer. Patient signed out to Dr. Manzo for further management <Ricky Manzo, - Last Filed: 11/02/19 00:37> Lab Data Labs: Lab Results 11/01/19 11/01/19 11/01/19 Range/Units 18:28 18:35 18:35 WBC 9.1 (4.5-11.0) X10^3/uL RBC 4.47 (4.0-5.2) X10^6/uL Hgb 14.6 (12.0-16.0) g/dL Hct 43.0 (36-46) % MCV 96.2 (80-100) fL MCH 32.7 (26-34) PG MCHC 33.9 (30-36) % RDW 13.0 (11.6-14.8) % Plt Count 306 (150-400) X10^3/uL Neut % (Auto) 67.9 (50-75) % Lymph % (Auto) 25.0 (25-40) % [place] % (Auto) 6.1 (3-14) % Eos % (Auto) 0.2 L (2-4) % Baso % (Auto) 0.8 (0-2) % Neut # (Auto) 6100 (6581-8225) /uL Lymph # (Auto) 2300 (7694-8068) /uL [place] # (Auto) 500 (0-900) /uL Eos # (Auto) 0 (0-450) /uL Baso # (Auto) 100 (0-100) /uL Sodium 139 (137-145) mmol/L Potassium 3.6 (3.4-5.1) mmol/L Chloride 101 (98-107) mmol/L Carbon Dioxide 28 (22-32) mmol/L BUN 6 L (7-17) mg/dL Creatinine 0.60 (0.52-1.04) mg/dL Estimated GFR > 60.0 (>60) mL/min BUN/Creatinine Ratio 10.0 (6-22) Glucose 110 H (70-100) mg/dL Calcium 9.6 (8.4-10.2) mg/dL Total Bilirubin 0.4 (0.2-1.3) mg/dL AST 23 (14-36) IU/L ALT 16 (<35) IU/L Alkaline Phosphatase 108 (38-126) U/L Total Protein 8.5 H (6.3-8.2) g/dL Albumin 4.9 (3.5-5.0) g/dL Globulin 3.6 (1.7-4.1) g/dL Albumin/Globulin Ratio 1.4 (1.0-2.8) TSH (0.47-4.68) uIU/mL HCG, Quant < 2.39 mIU/mL Salicylates < 1.0 (<20) mg/dL U Morph 300 ng/mL cutoff Negative (Negative) Ur Oxycodone Screen Negative (Negative) Urine Methadone Screen Negative (Negative) Acetaminophen < 10 L (10-30) ug/mL Ur Barbiturates Screen Negative (Negative) U Tricyclic Antidepress Negative (Negative) Ur Phencyclidine Scrn Negative (Negative) Ur Amphetamines Screen Negative (Negative) U Methamphetamines Scrn Negative (Negative) Ur MDMA Scrn (Ecstasy) Negative (Negative) U Benzodiazepines Scrn Negative (Negative) Urine Cocaine Screen Negative (Negative) U Marijuana (THC) Screen Negative (Negative) Ethyl Alcohol < 10 ( - 10) mg/dL 11/01/ Range/Units 18:35 WBC (4.5-11.0) X10^3/uL RBC (4.0-5.2) X10^6/uL Hgb (12.0-16.0) g/dL Hct (36-46) % MCV (80-100) fL MCH (26-34) PG MCHC (30-36) % RDW (11.6-14.8) % Plt Count (150-400) X10^3/uL Neut % (Auto) (50-75) % Lymph % (Auto) (25-40) % [place] % (Auto) (3-14) % Eos % (Auto) (2-4) % Baso % (Auto) (0-2) % Neut # (Auto) (4641-0240) /uL Lymph # (Auto) (3007-8910) /uL [place] # (Auto) (0-900) /uL Eos # (Auto) (0-450) /uL Baso # (Auto) (0-100) /uL Sodium (137-145) mmol/L Potassium (3.4-5.1) mmol/L Chloride (98-107) mmol/L Carbon Dioxide (22-32) mmol/L BUN (7-17) mg/dL Creatinine (0.52-1.04) mg/dL Estimated GFR (>60) mL/min BUN/Creatinine Ratio (6-22) Glucose (70-100) mg/dL Calcium (8.4-10.2) mg/dL Total Bilirubin (0.2-1.3) mg/dL AST (14-36) IU/L ALT (<35) IU/L Alkaline Phosphatase (38-126) U/L Total Protein (6.3-8.2) g/dL Albumin (3.5-5.0) g/dL Globulin (1.7-4.1) g/dL Albumin/Globulin Ratio (1.0-2.8) TSH 0.77 (0.47-4.68) uIU/mL HCG, Quant mIU/mL Salicylates (<20) mg/dL U Morph 300 ng/mL cutoff (Negative) Ur Oxycodone Screen (Negative) Urine Methadone Screen (Negative) Acetaminophen (10-30) ug/mL Ur Barbiturates Screen (Negative) U Tricyclic Antidepress (Negative) Ur Phencyclidine Scrn (Negative) Ur Amphetamines Screen (Negative) U Methamphetamines Scrn (Negative) Ur MDMA Scrn (Ecstasy) (Negative) U Benzodiazepines Scrn (Negative) Urine Cocaine Screen (Negative) U Marijuana (THC) Screen (Negative) Ethyl Alcohol ( - 10) mg/dL Point of Care Testing Test Results Negative Urine Dip Bedside Urine Glucose Negative Bedside Urine Bilirubin - Negative Bedside Urine Ketone - Negative Urine Specific [place] 1.010 Bedside Urine Occult Blood - Negative Bedside Urine pH 6.0 Bedside Urine Protein - Negative Bedside Urine Urobilinogen - Negative Bedside Urine Nitrite - Negative Bedside Urine Leukocytes - Negative Esterase <Ricky Manzo, DO - Last Filed: 11/02/19 00:37> Critical Care Time Critical Care Time: Yes Total Critical Care Time: 30 Attestation: The high probability of a clinically significant, sudden or life threatening deterioration of the [Psych] system(s) required my full and direct attention, intervention and personal management. The aggregate critical care time was [30] minutes. This time is in addition to time spent performing reported procedures but includes the following: [x] Data Review and interpretation [x] Patient assessment and monitoring of vital signs [x] Documentation [x] Medication orders and management Discharge Plan Departure Patient Disposition: Xfer Psychiatric Hosp Clinical Impression: Acute psychosis Discharge Date/Time: 11/01/19 22:15
--- NOTE | 2019-11-01 18:02 | PC.NURSE ---
Addendum entered by Britany Vanessa CNA 11/01/19 18:02: DANNY/KADY note: Pt. started to raise her voice towards Ashli. threaten to lauro this place. you guys cant do this. RN and i were able to get Pt. into gown and robe. Pt. is sitting on the foot of the bed. Original Note: DANNY
--- NOTE | 2019-11-01 18:05 | PC.NURSE ---
Lab attempted to draw blood and was unable. Pt moving arm and bending during attempt. This RN attempted to draw blood but unable as pt continued to bend and move arm during draw. Pt then refused further attempt. Pt then began swearing, I'm going to send the fucking FBI after you!. Noted escalation of agitation and anger. Room made safe, pt changed to hospital attire. MPs continue 1:[address] [place] [employer] also aware. Provider aware and ordered Ativan 2 mg which patient accepted. Continues 1:1 observation in [employer] Police custody.
[2019-11-01] MEDS: LORazepam 0.5 MG TABLET 2 MG PO (18:19)
[2019-11-01 18:43] LABS: Add Manual Diff / Slide Review NO; Basophils Absolute Auto 100 /uL (0-100); Basophils Percent Auto 0.8 % (0-2); Eosinophils Absolute Auto 0 /uL (0-450); Eosinophils Percent Auto 0.2 % (2-4); Hemoglobin 14.6 g/dL (12.0-16.0); Lymphocytes Absolute Auto 2300 /uL (1100-4500); Mean Corpuscular HGB Conc 33.9 % (30-36); Mean Corpuscular Hemoglobin 32.7 PG (26-34); Mean Corpuscular Volume 96.2 fL (80-100); Monocytes Absolute Auto 500 /uL (0-900); Monocytes Percent Auto 6.1 % (3-14); Neutrophils Absolute Auto 6100 /uL (1500-7000); Neutrophils Percent Auto 67.9 % (50-75); Platelet Count 306 X10^3/uL (150-400); Red Blood Cell Count 4.47 X10^6/uL (4.0-5.2); White Blood Cell Count 9.1 X10^3/uL (4.5-11.0)
[2019-11-01 18:55] LABS: Ur Creatinine Normal (Normal); Ur Specific Gravity Normal (Normal); Urine pH Normal (Normal)
[2019-11-01 18:55] LABS: Acetaminophen < 10 ug/mL (10-30); Alanine Aminotransferase 16 IU/L (<35); Albumin 4.9 g/dL (3.5-5.0); Albumin Globulin Ratio 1.4 (1.0-2.8); Alkaline Phosphatase 108 U/L (38-126); Aspartate Aminotransferase 23 IU/L (14-36); Bilirubin Total 0.4 mg/dL (0.2-1.3); Blood Urea Nitrogen 6 mg/dL (7-17); Calcium 9.6 mg/dL (8.4-10.2); Carbon Dioxide 28 mmol/L (22-32); Chloride 101 mmol/L (98-107); Estimated Glomerular Filt Rate > 60.0 mL/min (>60); Ethanol (ETOH) < 10 mg/dL; Globulin 3.6 g/dL (1.7-4.1); Glucose 110 mg/dL (70-100); HEMOLYSIS < 15 (0-50); Potassium 3.6 mmol/L (3.4-5.1); Salicylate < 1.0 mg/dL (<20); Sodium 139 mmol/L (137-145); Total Protein 8.5 g/dL (6.3-8.2)
[2019-11-01 18:56] LABS: UR Morphine/Opiate cutoff 300 Negative (Negative); Urine Amphetamines Negative (Negative); Urine Barbiturates Negative (Negative); Urine Benzodiazepines Negative (Negative); Urine Cocaine Negative (Negative); Urine MDMA Negative (Negative); Urine Methadone Negative (Negative); Urine Methamphetamines Negative (Negative); Urine Oxycodone Negative (Negative); Urine Phencyclidine Negative (Negative); Urine Tetrahydrocannabinol Negative (Negative); Urine Tricyclic Antidepressant Negative (Negative)
[2019-11-01 19:12] LABS: HCG Quantitative /Beta subunit < 2.39 mIU/mL
[2019-11-01 19:26] LABS: Thyroid Stimulating Hormone 0.77 uIU/mL (0.47-4.68)
[2019-11-01 20:30] VITALS: BP 127/80; PULSE 91; RESP 16; TEMP 37; O2SAT 100
== END 2019-11-01 22:15 ==
PROVIDERS: Emergency Medicine; Emergency Provider Emergency Medicine
DX: F29 Unspecified psychosis not due to a substance or known physiological condition (principal)
CPT/HCPCS: 36415; 80053; 80305; 80320; 80329; 81003; 81025; 84443; 84702; 85025; 99284; G0480